=== PATIENT | female | born 1975 | race Caucasian/White ===

== ENCOUNTER 2023-02-22 16:00 | Emergency (ER) | payer OTHER, SELFPAY ==
[2023-02-22 16:15] VITALS: BP 136/84; PULSE 92; RESP 16; TEMP 36.8; O2SAT 100
--- NOTE | 2023-02-22 16:38 | ED.FEMALEGU ---
HPI - Female Genitourinary General Chief complaint: Urogenital-Female Stated complaint: Female Urogenital Source: patient and RN notes reviewed Mode of arrival: ambulatory Limitations: no limitations History of Present Illness HPI Narrative: 47-year-old female presented for complaint of vaginal irritation/burning sensation over the past month. She states she first noticed the symptoms during intercourse, however over the past few days she has noticed burning with urination as well. Also reports urinary frequency. States the chlorine level in pool has been too high over the past several weeks. She denies vaginal itching, discharge, skin lesions, hematuria, abdominal pain, flank pain, nausea vomiting, diarrhea, fevers or chills. Hx genital warts in her 20s. Denies concern for STD. Used 3 day course of monistat, and taking AZO. IUD in place. Related Data Home Medications Medication Instructions Recorded Confirmed topiramate 25 mg tablet 25 mg PO BID 02/22/23 02/22/23 Allergies Allergy/AdvReac Type Severity Reaction Status Date / Time No Known Allergies Allergy Unknown Verified 02/22/23 16:10 Review of Systems Review of Systems: CONSTITUTIONAL: Denies body aches, fever, chills, or sweats. CARDIOVASCULAR: Denies chest pain, palpitations, or edema. RESPIRATORY: Denies cough or dyspnea. GASTROINTESTINAL: Denies abdominal pain, nausea, vomiting, or diarrhea. GENITOURINARY: Reports dysuria, frequency, denies urgency, hematuria, flank pain SKIN: Denies rash, itching, or wounds. MUSCULOSKELETAL: Denies back pain or myalgia. [facility] Past Medical History Medical History (Updated 02/22/23 @ 17:14 by Ana Hogue APRN) No pertinent past medical history Comments At time of signature, I have reviewed and agree with nursing past medical, surgical, social and family history unless otherwise noted. Please see nursing chart for further information. There is no relevant family history pertinent to the presenting complaint Exam Narrative: GENERAL: Well-appearing ENT: Mucous membranes pink and moist. NECK: Normal AROM. Supple. CHEST: No respiratory distress. Clear to auscultation. HEART: Regular rate and rhythm. ABDOMEN: Soft, nontender, nondistended, normal active bowel sounds. No CVA tenderness :Speculum Exam - Vagina: normal vaginal introitus, pink without discharge/bleeding, laceration or lesions. No swelling. Nontender. Chaperoned by Natasha RT SKIN: Warm, dry, no rash. NEURO: No focal deficits. Alert and oriented x3. Gait steady. PSYCH: Normal affect. Course Course Emergency Course: Patient is aware of diagnosis, understands and agrees to treatment plan. Anticipatory guidance given. Patient agrees to follow-up as directed and is aware of reasons to seek care at the emergency department. Portions of this record may have been created with voice recognition software Level of Care: Express Care Visit Vital Signs Vital signs: Vital Signs Temperature 98.3 F 02/22/23 16:15 Pulse Rate 92 02/22/23 16:15 Respiratory Rate 16 02/22/23 16:15 Blood Pressure 136/84 02/22/23 16:15 Pulse Oximetry 100 02/22/23 16:15 Oxygen Delivery Room Air 02/22/23 16:15 Temperature 98.3 F 02/22/23 16:15 Pulse Rate 92 02/22/23 16:15 Respiratory Rate 16 02/22/23 16:15 Blood Pressure 136/84 02/22/23 16:15 Pulse Oximetry 100 02/22/23 16:15 Oxygen Delivery Room Air 02/22/23 16:15 Reviewed MDM - Female Genitourinary MDM Narrative Medical decision making narrative: Results of urine reviewed with patient. Discussed physical exam findings. Denies concern for STD. Will send a vaginal culture and Will send prescription for Flagyl for possible BV. Advised supportive measures and signs/symptoms to go to the ER. Pt is appropriate for outpt treatment and f/u with obgyn. Differential Diagnosis Differential diagnosis: Likely urinary tract infection, bacterial vaginosis, vaginitis an
== END 2023-02-22 17:14 | disposition home or self-care (01) ==
PROVIDERS: Emergency Provider Nurse Practitioner Family; PCP Nurse Practitioner Family
DX: N76.0 Acute vaginitis (principal); K21.9 Gastro-esophageal reflux disease without esophagitis
CPT/HCPCS: 81003; 87070; 87077; 87086; 87088; 87186; 99213; G0463